=== PATIENT | female | born 1935 | race Caucasian/White ===

== ENCOUNTER 2019-08-17 15:40 | Emergency (ER) | payer OTHER, BC ==
[2019-08-17 15:44] VITALS: BP 157/82; PULSE 84; TEMP 97.8; BMI 25.8
--- NOTE | 2019-08-17 16:17 | PDOC ---
History of Present Illness - General Chief Complaint: Pain Stated Complaint: LEFT HIP PAIN Time Seen by Provider: 08/17/19 15:46 - History of Present Illness Initial Comments: Tejal Sommers is an 84yo woman with no known chronic medical problems, s/p right hip replacement (13yrs ago) who presents reporting one week of worsening left hip pain. She states that she was putting on stockings one week ago and heard a pop in her left hip. She had pain immediately but was able to walk initially. Over the week, the pain has become more severe. It is worst when walking up stairs and resolves when she is not bearing weight. She is finding it difficult to walk due to the pain. She has tried 500mg acetaminophen, most recently this morning, without significant relief of the pain. She also notes that her son told her that she is "lopsided" when she is walking due to leaning over to one side. She has not noticed any redness, swelling, warmth or rash in the area, denies fever/chills, or any systemic symptoms. She denies any groin or buttock pain. She additionally notes chronic low back pain with occasional tingles down her leg, and she reports a right shoulder injury 3 months ago with pain at the end of the day. Past History - Past Medical History Allergies/Adverse Reactions: Allergies Allergy/AdvReac Type Severity Reaction Status Date / Time No Known Allergies Allergy Unverified 09/06/14 09:56 COPD: No - Surgical History Cholecystectomy: Yes - Psycho Social/Smoking Cessation Hx Smoking History: Never smoked Have you smoked in the past 12 months: No Information on smoking cessation initiated: No Hx Alcohol Use: (occasional) Review of Systems - Review of Systems Comments:: General: No fevers, no chills, no weight or appetite change, no malaise HEENT: No changes in vision, no changes in hearing, no congestion, no sore throat CV: No chest pain, no palpitations, no LE edema Pulm: No SOB, no cough, no wheezing GI: No nausea or vomiting, no change in bowel habits, no melena : No frequency, no urgency, no dysuria Musc: see HPI Skin: No rash, no lesions, no erythema Endo: No excessive thirst, no heat/cold intolerance Heme: No unusual bruising or bleeding, no swollen glands Neuro: No syncope, no numbness/tingling, no focal weakness Vasc: No claudication Psych: No recent change in mood, no SI or HI *Physical Exam - Vital Signs Last Vital Signs Temp Pulse Resp BP Pulse Ox 97.8 F 84 18 157/82 96 08/17/19 15:40 08/17/19 15:40 08/17/19 15:40 08/17/19 15:40 08/17/19 15:40 - Physical Exam General: Comfortable, no acute distress HEENT: PERRL, EOMI, MMM, voice normal, normal neck ROM, no LAD Cards: RRR, no murmur appreciated Pulm: Comfortable on room air, clear to auscultation bilaterally Abd: Soft, nontender, nondistended Ext: No visible trauma or deformity. No LE edema. ROM intact. LLE with TTP laterally just distal to hip; no overlying erythema, warmth, or swelling. Limp when ambulating, favoring LLE. Vasc: Extremities WWP. Skin: Normal color, no rashes or lesions Neuro: A&Ox3, CN grossly intact, normal speech, motor/sensory grossly intact and symmetric. No focal deficits. Psych: Mood appropriate to situation Medical Decision Making - Medical Decision Making 08/17/19 16:19 Tejal Sommers is an 84yo woman with no known chronic medical problems, s/p right hip replacement (13yrs ago) who presents reporting one week of worsening left hip pain after hearing a pop while putting on stockings. She reports worsening pain and difficulty ambulating, now with a limp, especially when walking up stairs. She has no pain when laying still. - Most likely soft tissue injury, possible bursitis, possible chip fracture. Unlikely hip or pelvic fracture given lateral location of pain and ability to bear weight - Xrays for evaluation - Ibuprofen 08/17/19 17:22 - Xrays reviewed. No bony injury or significant OA in left hip. No bony injury in Rt shoulder Lumbar spine with marked degenerative changes - Updated patient. Most likely soft tissue injury vs bursitis - Discussed NSAID use, ice, and ortho follow up. Pt understands and agrees with this plan. Discussed with Dr Denver Villanueva PGY2 Discharge - Discharge Information Problems reviewed: Yes Clinical Impression/Diagnosis: Left hip pain, Chronic right shoulder pain Condition: Stable Disposition: HOME - Admission No - Follow up/Referral Referrals: Terrance Teixeira DO [Staff Physician] - Donavon Gonzáles MD [Staff Physician] - Tyler Murphy MD [Staff Physician] - - Patient Discharge Instructions Patient Printed Discharge Instructions: DI for Hip Pain Additional Instructions: Discharge Instructions: You were seen in the emergency department for left hip pain. You were also evaluted for right shoulder and low back pain. Home Care and Follow Up: - You may use over the counter medications as needed for pain at home. 600mg ibuprofen (Motrin or Advil) can be used every 8 hours. If needed for continued pain, you may add 650-1000mg acetaminophen (Tylenol) every 8 hours as well; these medications may be alternated every 4 hours or taken at the same time. - It is strongly recommended that you take ibuprofen with food or milk to help prevent stomach irritation. - You may buy a numbing patch that contains lidocaine (the patch is 4% lidocaine ) that can be placed over the areas of greatest pain. The lidocaine patch may be placed for 12 hours then removed for 12 hours. - Try using an ice pack for 20 minutes every hour additional pain control. These should NOT be used over the lidocaine patch, but you may place them over the areas of pain while the patch is off. - If your pain does not improve over the next 2-3 days, you have been referred to orthopedics for follow up. You have been given contact information for Dr Gonzáles, Dr Teixeira, or Dr Murphy. - Seek immediate medical care if you have significant worsening of your symptoms , you are unable to bear weight, you notice redness or swelling at the joint, you develop fever to 101F or higher, or you have any other medical emergency. - Post Discharge Activity
[2019-08-17] MEDS ORDERED: IBUPROFEN 600 MG TABLET (FP) PO ONE ×2 (16:22→16:34)
--- NOTE | 2019-08-17 16:32 | PDOC ---
Attending Attestation - Resident Resident Name: Alice Villanueva - ED Attending Attestation I have performed the following: I have examined & evaluated the patient, The case was reviewed & discussed with the resident, I agree w/resident's findings & plan, Exceptions are as noted - HPI HPI: 08/17/19 16:28 84yo female with L hip pain x days. States the pain started acutely last week and worsened over the weekend. Pt states she was putting on her stockings when she felt a pop/heard the pop to her L hip. No radiation of the pain. States now with intermittent numbness in the leg. Chronic lbp. Also c/o 3m hx of R shoulder pain after falling in her bathroom and jamming her R shoulder. No paresthesias. No weakness arms or legs. Pulses intact, sensation intact. Pt ambulated into the ED but with a limp. Took 500mg tylenol this Am for pain. - Physicial Exam PE: 08/17/19 16:29 Gen: aaox3, nad back: no mildine ttp, no stepoffs or deformities, from of her back, L paraspinal ttp, L si joint ttp ext: R shoulder FROM but pain at ends of rom. normal muscle strength UE, sensation intact all extremities, muscle strength intact b/l LE, pain with flexion and abduction of the hip, L lateral hip ttp-no rashes. pulses intact, sensation intact, no knee ttp - Medical Decision Making 08/17/19 16:31 a/p: 84yo female with L hip pain, R shoulder pain and lbp -will obtain xrays -motrin for pain -prior hx of R hip replacement at [facility] in [facility] -has not seen ortho in over 13 years -will monitor and reassess 08/17/19 17:17 degenerative changes lumbar spine no acute L hip fx or pathology no acute R shoulder pathology will need orthopedic follow up discussed all xray findings and need for follow up discussed limitations of xray imaging and poss need for further imaging ct/mri with orthopedics son at the bedside understands all instructions/pt understands all instructions stable for dc to home
== END 2019-08-17 17:40 | disposition home or self-care (01) ==
LOC: FER 15:40
DX: M25.552 Pain in left hip (principal); M25.511 Pain in right shoulder; G89.29 Other chronic pain
CPT/HCPCS: 72100-TC-FY; 73030-TC-RT-FY; 73523-TC-FY; 99282-25